=== PATIENT | male | born 1975 | race African-American/Black ===

== ENCOUNTER 2021-08-23 13:55 | Emergency (ER) | payer OTHER, MEDICAID ==
[~2021-08-23] VITALS: Ht 182.9 cm; Wt 63.5 kg
[2021-08-23] MEDS ORDERED: SODIUM CHLORIDE 0.9% 1,000 ML IVB ONE (17:15)
[2021-08-23] MEDS ORDERED: PROMETHAZINE HCL 25 MG/ML 1ML IV ONE (17:15)
[2021-08-23] MEDS ORDERED: HYDROmorphone HCL 2 MG/ML VL/or syr IV ONE (17:15)
[2021-08-23 19:32] LABS: Eosinophils # (auto) 1.1 10 ^3/uL (0-0.8); Hematocrit 23.5 % (41.0-53.0); Hemoglobin 8.4 g/dL (13.5-17.5); Mean Corpuscular Hgb Conc. 35.8 g/dL (32.0-36.0)
[2021-08-23 19:37] LABS: Basophils # (auto) 0.4 10 ^3/uL (0-0.2); Basophils % (auto) 2.4 % (0.0-2.0); Eosinophils % (auto) 7.6 % (0.0-7.0); Lymphocytes # (auto) 4.5 10 ^3/uL (0.4-5.4); Lymphocytes % (auto) 30.3 % (10.0-50.0); Mean Corpuscular Hemoglobin 35.6 pg (28.0-32.0); Mean Corpuscular Volume 99.5 fL (80.0-100.0); Monocytes # (auto) 2.3 10 ^3/uL (0-1.3); Monocytes % (auto) 15.5 % (0.0-12.0); Neutrophils # (auto) 6.6 10 ^3/uL (1.6-8.6); Neutrophils % (auto) 44.2 % (37.0-80.0); Nucleated Red Blood Cells % 0.5 %; Red Blood Cells 2.36 10^6/uL (4.5-5.90); White Blood Cell 14.9 10^3/uL (4.4-10.8)
[2021-08-23 19:49] LABS: Red Cell Distribution Width 25.4 % (11.8-14.3)
[2021-08-23 19:50] LABS: Albumin 4.2 g/dL (3.4-5.0); Calcium 9.4 mg/dL (8.5-10.1); Potassium 4.9 mmol/L (3.5-5.1)
[2021-08-23 19:53] LABS: BUN/Creatinine Ratio 10.6; Bilirubin, Total 4.7 mg/dL (0.2-1.0); Total Protein 8.3 g/dL (6.4-8.2)
[2021-08-24 03:45] LABS: Urine Bacteria NONE SEEN /hpf (None Seen); Urine Blood Negative /uL (Negative); Urine WBC 1 /hpf (0 - 3)
[2021-08-24 04:00] VITALS: BP 128/65
== END 2021-08-24 04:12 | disposition home or self-care (01) ==
LOC: ER 13:55 → EDBD 13:55 → ER 08-24 04:12
DX: D57.00 Hb-SS disease with crisis, unspecified (principal); Z86.73 Personal history of transient ischemic attack (TIA), and cerebral infarction without residual deficits; Z90.49 Acquired absence of other specified parts of digestive tract
CPT/HCPCS: 36415; 71046; 80053; 81001; 83735; 84443; 85025; 85045; 93005; 96361; 96374; 96375; 99285; J1170; J2550; J7030

== ENCOUNTER 2023-07-20 15:17 | Emergency (ER) | payer MEDICAID, OTHER ==
[~2023-07-20] VITALS: Ht 180.3 cm; Wt 63.6 kg
[2023-07-20] MEDS: SODIUM CHLORIDE 0.9% 1,000 ML IV ONE ×2 (16:02→18:42)
[2023-07-20] MEDS: HYDROmorphone HCL 2 MG/ML VL/or syr IV ONE ×2 (16:02→18:43)
[2023-07-20 16:15] LABS: Alanine Aminotransferase 35 U/L (7-40); Alkaline Phosphatase 86 U/L (46-116); Anion Gap 8 (5-15); Aspartate Aminotransferase 80 U/L (13-40); BUN/Creatinine Ratio 12.4 (10.0-20.0); Bilirubin, Total 3.1 mg/dL (0.2-1.0); Blood Urea Nitrogen 19 mg/dL (9-23); Calcium 9.9 mg/dL (8.5-10.1); Carbon Dioxide 25 mmol/L (20-30); Chloride 109 mmol/L (98-107); Glucose 88 mg/dL (74-106); Potassium 4.5 mmol/L (3.5-5.1); Sodium 142 mmol/L (136-145); Total Protein 6.4 g/dL (5.7-8.2)
[2023-07-20 16:19] LABS: Hematocrit 26.1 % (41.0-53.0); Hemoglobin 8.8 g/dL (13.5-17.5); Mean Corpuscular Hgb Conc. 33.8 g/dL (32.0-36.0); Mean Corpuscular Volume 100.5 fL (80.0-100.0); White Blood Cell 22.8 10^3/uL (4.4-10.8)
[2023-07-20 16:24] LABS: Red Cell Distribution Width 25.3 % (11.8-14.3)
[2023-07-20 16:25] LABS: Band Neutrophils % (manual) 0; Basophils % (manual) 0 (0.0-2.0); Blast Cells 0; Eosinophils % (manual) 0 (0-7); Metamyelocytes % 0; Myelocytes % 0; Promyelocytes % 0; Reactive Lymphocytes 0
[2023-07-20 17:25] VITALS: PULSE 107; RESP 16; O2SAT 94
[2023-07-20 17:31] LABS: Lymphocytes % (manual) 32 (10.0-50.0); Monocytes % (manual) 17 (0-12)
[2023-07-20 17:32] LABS: Anisocytosis Slight; Large Platelets FEW; Macrocytosis Slight; Ovalocytes FEW; Platelet Estimate Increa
[2023-07-20] MEDS ORDERED: VANCOMYCIN PER PHARMACY 0 MG IV SCH (17:45)
[2023-07-20] MEDS: PIPERACILLIN-TAZOB 3.375GM 100 ML IV ONE (18:42)
[2023-07-20] MEDS: VANCOMYCIN 1GM/200ML 200 ML IV ONE (18:43)
[2023-07-20 19:30] VITALS: PULSE 97; RESP 12; TEMP 98.3; O2SAT 95
[2023-07-20 20:47] VITALS: BP 142/92; PULSE 97; RESP 23
[2023-07-20] MEDS: HYDROmorphone HCL 2 MG/ML VL/or syr IV PRN (20:47)
[2023-07-21] MEDS ORDERED: VANCOMYCIN 500 MG in D5W 5% 100 ML IV SCH (07:00)
== END 2023-07-20 21:56 | disposition left against medical advice (07) ==
LOC: EDBD 15:17 → ER 15:17 → EDSEX 15:17 → ER 21:56
DX: D57.00 Hb-SS disease with crisis, unspecified (principal); R07.89 Other chest pain; Z86.73 Personal history of transient ischemic attack (TIA), and cerebral infarction without residual deficits; Z88.6 Allergy status to analgesic agent
CPT/HCPCS: 36415; 71045; 80053; 83605; 83880; 85007; 85027; 85045; 85379; 87040; 87077; 87186; 96361; 96365; 96368; 96375; 96376; 99285; J1170; J2543; J3370; J7030; J7060